=== PATIENT | female | born 1960 | race African-American/Black ===

== ENCOUNTER 2021-08-14 08:26 | Inpatient (IN) | payer OTHER ==
[~2021-08-14] VITALS: Ht 157.5 cm; Wt 64.9 kg
[2021-08-14] MEDS ORDERED: ACETAMINOPHEN 325MG TABLET PO STA (09:35)
[2021-08-14] MEDS ORDERED: SODIUM CHLORIDE 0.9% 1,000 ML IV ONE (09:45)
[2021-08-14 09:51] LABS: BASOPHILS % 0.6 % (0.0-2.0); HEMATOCRIT. 44.3 % (36.0-48.0); HEMOGLOBIN. 15.1 g/dL (12.0-16.0); LYMPHOCYTES % 21.4 % (20.0-50.0); MEAN CORPUSCULAR HEMOGLOBIN 31.1 pg (28.0-32.0); MEAN CORPUSCULAR VOLUME 91.2 fL (81.0-99.0); MEAN PLATELET VOLUME 10.1 fl (7.4-10.4); MONOCYTES % 14.2 % (2.0-8.0); NEUTROPHILS % 63.8 % (40.0-76.0); PLATELET 117 x1000/uL (130-400); RED BLOOD CELL COUNT 4.86 mill/uL (4.2-5.4); RED CELL DISTRIBUTION WIDTH 13.4 % (11.6-14.6)
[2021-08-14 10:00] LABS: CHLORIDE 106 mEq/L (98-107)
[2021-08-14 10:19] LABS: CLARITY URINE CLEAR (CLEAR); COLOR URINE YELLOW (YELLOW); KETONES URINE TRACE (NEGATIVE); LEUKOCYTE ESTERASE URINE TRACE (NEGATIVE); NITRITE URINE NEGATIVE (NEGATIVE); OCCULT BLOOD URINE 1+ (NEGATIVE); PROTEIN URINE 1+ (NEGATIVE); SPECIFIC GRAVITY URINE 1.015 (1.005-1.030)
[2021-08-14] MEDS ORDERED: ACETAMINOPHEN 325MG TABLET PO NR (11:00)
[2021-08-14] MEDS ORDERED: IOHEXOL-350 100 ML BOTTLE ONE (13:52)
[2021-08-14] MEDS ORDERED: MORPHINE SULFATE 4 MG/ML CPJ (NOT FOR IM USE) IV ONE (14:00)
[2021-08-14] MEDS ORDERED: CLONIDINE 0.1MG TABLET PO PRN (19:15)
[2021-08-14] MEDS ORDERED: KETOROLAC 15MG/ML VIAL IV PRN (19:15)
[2021-08-14] MEDS ORDERED: IPRATROPIUM/ALBUTEROL 0.5-3(2.5)MG/3ML NEB NEB PRN (19:15)
[2021-08-14] MEDS ORDERED: ZOLPIDEM TARTRATE 5MG TABLET PO PRN (19:15)
[2021-08-14] MEDS ORDERED: ONDANSETRON HCL 4MG/2ML INJ IV PRN (19:15)
[2021-08-14] MEDS ORDERED: MAGNESIUM/ALUMINUM HYDROXIDE/SIMETHICONE 30ML UDC PO PRN (19:15)
[2021-08-14] MEDS ORDERED: ACETAMINOPHEN 325MG TABLET PO PRN ×2 (19:15)
[2021-08-14] MEDS ORDERED: DOCUSATE SODIUM 100MG CAPSULE PO PRN (19:15)
[2021-08-14] MEDS ORDERED: NITROGLYCERIN 0.4MG TABLET SL SL PRN (19:15)
[2021-08-14 20:00] VITALS: BP_SYST 127; BP_SYST 151; BP_DIAS 78; BP_DIAS 85
[2021-08-14] MEDS: IPRATROPIUM/ALBUTEROL 0.5-3(2.5)MG/3ML NEB HHN SCH (21:15)
[2021-08-14 21:44] LABS: BG BASE EXCESS -1.5 mmol/L (-2.0-2.0); BG CARBOXYHEMOGLOBIN 0.4 % (0.5-1.5); BG DEOXYHEMOGLOBIN 3.4 % (0.0-5.0); BG FRACTION INSPIRED OXYGEN 32; BG HCO3 ACT 24.1 mmol/L (22.0-26.0); BG METHEMOGLOBIN 0.2 % (0.0-1.5); BG OXYGEN SATURATION 96.6 % (92.0-98.5); BG PCO2 43.8 mmHg (35.0-45.0); BG PH 7.359 (7.350-7.450); BG PO2 90.8 mmHg (75.0-100.0); BG SAMPLE SITE RIGHT RADIAL; BG TOTAL HEMOGLOBIN 14.2 g/dL (12.0-18.0); BG VENT MODE NASAL CANNULA
[2021-08-14 22:28] LABS: FOLIC ACID (FOLATE) SERUM 12.4 ng/mL (>5.38)
[2021-08-14] MEDS: FAMOTIDINE 20MG TABLET PO SCH (23:08)
[2021-08-14] MEDS: ASCORBIC ACID 500 MG TABLET PO SCH (23:08)
[2021-08-14] MEDS: ENOXAPARIN 40MG/0.4ML SYR SUBCUT SCH (23:09)
[2021-08-14] MEDS: METHYLPREDNISOLONE SOD SUCC 125 MG/2 ML VIAL IV SCH (23:10)
[2021-08-15] VITALS: BP_SYST 120; BP_SYST 127; BP_DIAS 77; BP_DIAS 78
[2021-08-15] MEDS: IPRATROPIUM/ALBUTEROL 0.5-3(2.5)MG/3ML NEB HHN SCH ×3 (01:01→12:03)
[2021-08-15 01:35] LABS: CREATINE KINASE MB FRACTION 2.8 ng/mL (0.5-3.6)
[2021-08-15 04:00] VITALS: BP 122/72
[2021-08-15] MEDS ORDERED: ROSU20TA2 PO (05:37)
[2021-08-15] MEDS ORDERED: AMLO5TAB88 PO (05:37)
[2021-08-15] MEDS ORDERED: ALBU90AE2 INH (05:37)
[2021-08-15 07:30] LABS: BASOPHILS % 0.3 % (0.0-2.0); HEMATOCRIT. 46.1 % (36.0-48.0); HEMOGLOBIN. 15.5 g/dL (12.0-16.0); LYMPHOCYTES % 13.4 % (20.0-50.0); MEAN CORPUSCULAR HEMOGLOBIN 31.5 pg (28.0-32.0); MEAN CORPUSCULAR VOLUME 93.6 fL (81.0-99.0); MEAN PLATELET VOLUME 10.6 fl (7.4-10.4); MONOCYTES % 3.6 % (2.0-8.0); NEUTROPHILS % 82.7 % (40.0-76.0); PLATELET 127 x1000/uL (130-400); RED BLOOD CELL COUNT 4.92 mill/uL (4.2-5.4); RED CELL DISTRIBUTION WIDTH 13.9 % (11.6-14.6)
[2021-08-15 08:00] VITALS: BP 119/95
[2021-08-15 08:49] LABS: CHLORIDE 108 mEq/L (98-107)
[2021-08-15 09:03] LABS: CREATINE KINASE 321 IU/L (26-192); CREATINE KINASE MB FRACTION 3.2 ng/mL (0.5-3.6); PHOSPHORUS 3.8 mg/dL (2.5-4.9)
[2021-08-15] MEDS: ASPIRIN 325MG EC TABLET PO SCH (09:31)
[2021-08-15] MEDS: CHOLECALCIFEROL (D3) 1000 UNIT TABLET PO SCH (09:31)
[2021-08-15] MEDS: ASCORBIC ACID 500 MG TABLET PO SCH ×2 (09:31→21:31)
[2021-08-15] MEDS: FAMOTIDINE 20MG TABLET PO SCH ×2 (09:32→21:31)
[2021-08-15] MEDS: ZINC SULFATE 220 MG ( 50 ) CAPSULE PO SCH (09:32)
[2021-08-15 12:00] VITALS: BP 124/77
[2021-08-15 13:45] LABS: *AMPHETAMINES SCREEN URINE NEGATIVE (NEGATIVE); *BARBITURATES SCREEN URINE NEGATIVE (NEGATIVE); *BENZODIAZEPINES SCREEN URINE NEGATIVE (NEGATIVE); *COCAINE SCREEN URINE PRESUMTIVE POSITIVE (NEGATIVE); CANNABINOID URINE SCREEN PRESUMTIVE POSITIVE (NEGATIVE); METHADONE URINE SCREEN NEGATIVE (NEGATIVE); OPIATES URINE SCREEN NEGATIVE (NEGATIVE); PHENCYCLIDINE URINE SCREEN NEGATIVE (NEGATIVE)
[2021-08-15] MEDS: METHYLPREDNISOLONE SOD SUCC 125 MG/2 ML VIAL IV SCH (13:57)
[2021-08-15 16:00] VITALS: BP 129/85
[2021-08-15 20:39] VITALS: BP 146/83
[2021-08-15] MEDS: IPRATROPIUM/ALBUTEROL 0.5-3(2.5)MG/3ML NEB NEB SCH (20:59)
[2021-08-15] MEDS: METHYLPREDNISOLONE SOD SUCC 40 MG/ML VIAL IV SCH (21:31)
[2021-08-15] MEDS: ENOXAPARIN 40MG/0.4ML SYR SUBCUT SCH (21:31)
[2021-08-16] VITALS: BP 145/92
[2021-08-16] MEDS: IPRATROPIUM/ALBUTEROL 0.5-3(2.5)MG/3ML NEB NEB SCH ×3 (01:34→09:08)
[2021-08-16 04:00] VITALS: BP 123/81
[2021-08-16] MEDS: METHYLPREDNISOLONE SOD SUCC 40 MG/ML VIAL IV SCH (06:00)
[2021-08-16] MEDS: CHOLECALCIFEROL (D3) 1000 UNIT TABLET PO SCH (08:51)
[2021-08-16] MEDS: ASPIRIN 325MG EC TABLET PO SCH (08:51)
[2021-08-16] MEDS: ASCORBIC ACID 500 MG TABLET PO SCH (08:51)
[2021-08-16] MEDS: FAMOTIDINE 20MG TABLET PO SCH (08:51)
[2021-08-16] MEDS: ZINC SULFATE 220 MG ( 50 ) CAPSULE PO SCH (08:51)
[2021-08-16] MEDS ORDERED: FLUT1DIS3 INH (09:44)
[2021-08-16 09:57] VITALS: BP 135/81
== END 2021-08-16 11:05 | disposition home or self-care (01) | DRG 917 ==
LOC: ER 08:47 → ENRESERV 17:00 → 7EST 17:18 → EDBEDREQTM 17:24 → EDBEDREQ 17:24
PROVIDERS: ADMIT Internal Medicine; ATTEND Internal Medicine
DX: T40.5X1A Poisoning by cocaine, accidental (unintentional), initial encounter (principal); J96.01 Acute respiratory failure with hypoxia; J68.0 Bronchitis and pneumonitis due to chemicals, gases, fumes and vapors; J45.901 Unspecified asthma with (acute) exacerbation; E44.1 Mild protein-calorie malnutrition; J44.1 Chronic obstructive pulmonary disease with (acute) exacerbation; J44.0 Chronic obstructive pulmonary disease with (acute) lower respiratory infection; T40.711A Poisoning by cannabis, accidental (unintentional), initial encounter; F12.90 Cannabis use, unspecified, uncomplicated; J20.9 Acute bronchitis, unspecified; Z20.822 Contact with and (suspected) exposure to COVID-19; D72.819 Decreased white blood cell count, unspecified; E78.00 Pure hypercholesterolemia, unspecified; R79.89 Other specified abnormal findings of blood chemistry; E78.5 Hyperlipidemia, unspecified; E83.51 Hypocalcemia; I10 Essential (primary) hypertension; Z87.891 Personal history of nicotine dependence; Z68.26 Body mass index [BMI] 26.0-26.9, adult; Y92.89 Other specified places as the place of occurrence of the external cause
CPT/HCPCS: 36415; 36600; 71045; 71275; 80053; 80061; 80305; 81003; 82375; 82550; 82553; 82607; 82746; 82805; 83036; 83540; 83550; 83605; 83735; 83880; 84100; 84443; 84484; 85025; 87426; 93005; 93306; 93970; 94640; 94664; 99285; J1650; J1885; J2270; J2920; J2930; J7030; Q9967